=== PATIENT | female | born 1950 | race Caucasian/White ===

== ENCOUNTER 2022-07-12 09:45 | Day surgery (SDC) | payer MEDICARE, OTHER, SELFPAY ==
[2022-07-12] VITALS (23 sets, daily range): BP systolic 112–155; BP diastolic 69–89; PULSE 51–80; RESP 14–20; TEMP 35.9–36.7; O2SAT 95–100; BMI 29.1
[2022-07-12] MEDS: CELECOXIB 200 MG CAPSULE PO ×2 (10:11→21:59)
[2022-07-12] MEDS: ACETAMINOPHEN 500 MG TABLET 1000 MG PO ×2 (10:11→19:17)
[2022-07-12] MEDS: SODIUM CHLORIDE 0.9 % (FLUSH) 10 ML SYRINGE IVF (10:26)
[2022-07-12] MEDS: LACTATED RINGERS 1000 ML 1,000 ML 100 ML IV ×2 (10:27→16:17)
[2022-07-12] MEDS: MIDAZOLAM HCL 1 MG/ML inj IVP (13:47)
--- NOTE | 2022-07-12 13:47 | SUR.PREOP ---
TIME?OUT:?1345 PT/Megan THOMPSON RN/Huong ENRIQUEZ MDA?VERIFICATION?OF?SURGICAL?SITE,?PROCEDURE,?AND?CONSENT OBTAINED?PRIOR?TO?INVASIVE?PROCEDURE.
[2022-07-12] MEDS: TRANEXAMIC ACID 100 MG/ML INJ 1000 MG IV (14:15)
[2022-07-12] MEDS: CEFAZOLIN 2 GM in 0.9 % SODIUM CHLORIDE Mini-bag 100 ML IVPB ×2 (14:15→19:36)
--- NOTE | 2022-07-12 15:37 | CRLHL7_ITS ---
For Patients: As a result of the Cures Act, medical imaging exams and procedure reports are released immediately into your electronic medical record. You may view this report before your referring provider. If you have questions, please contact your health care provider. Indication: POST-OP XRAY TKA LT KNEE Technique: Two views left knee Findings/Impression: Hardware from a left total knee arthroplasty is in satisfactory position. Bone alignment is normal. No sign of acute fracture. Postop changes are within normal limits. Dictated by Yoandy Kramer MD @ 07/13/2022 9:09:44 AM (Electronically Signed)
--- NOTE | 2022-07-12 15:54 | P.ORPRC_ITS ---
Procedure Note Date of procedure: 07/12/22 Procedure: PREOPERATIVE DIAGNOSIS: 1. Left knee osteoarthritis, primary, severe POSTOPERATIVE DIAGNOSIS: 1. Left knee osteoarthritis, primary, severe PROCEDURE: 1. Left total knee arthroplasty SURGEON: Anthony Ventura MD. LICENSED MENTAL HEALTH PROFESSIONAL: Scar Nguyen PA-C - Of note, a skilled call center assistant was critical for this case to aid in patient positioning, tissue retraction, limb manipulation/positioning, and closure. ANESTHESIA: Spinal anesthetic EBL: 50ml IMPLANTS: DePuy J&J all cemented TKA - Attune PS femur size 5 regular, size 4 tibia, 5 poly spacer, 38 mm patella TOURNIQUET: 90 min at 300 torr COMPLICATIONS: None evident INDICATIONS: The patient is a pleasant 72-year-old female who has experienced severe left knee pain and difficulty bearing weight. Workup included x-rays which revealed severe osteoarthrosis in the knee. Given the deformity, the dysfunction, and the pain, as well as the failure of nonoperative management, recommendation was made for surgery. FINDINGS: Full-thickness chondral loss medial compartment broadly. Degenerative medial meniscus pathology. Significant chondromalacia remaining compartments as well. Large effusion. Multiple loose bodies encountered in the posterior central part of the knee. The largest measured 15 mm in greatest dimension. DESCRIPTION OF PROCEDURE: Following a thorough discussion of risks, benefits, and alternatives consent was obtained and the left knee was marked. The patient was brought to the operating room and placed supine on the operating table. Induction of anesthesia was undertaken. 2 g IV Ancef and 1 g tranexamic acid was administered within 1 hr of incision preoperatively. Proper time-out was performed identifying proper patient, site, procedure. The operative extremity was prepped and draped in the appropriate sterile fashion using ChloraPrep after the patient was positioned supine with all bony prominences well padded. A longitudinal, anterior, midline skin incision was made starting approximately 3cm proximal to the superior pole of the patella and advanced distal to the tibial tubercle. A median parapatellar arthrotomy was created. A medial subperiosteal sleeve was created with knife, jimenez elevator and curved osteotome. The retropatellar fatpad was resected and the synovium in the suprapatellar pouch excised to visualize the anterior femoral cortex. Femoral preparation was performed via an intramedullary guide. Step drill allowed access into the femoral canal. The distal cutting guide was placed with 5? of valgus and 10 mm cut on the distal femur. Femur was sized using a posterior referencing guide in 3? of external rotation. This found have a best fit with the sizing noted above. The 4 in 1 cutting block was then placed, and the distal femur shaped accordingly. The box cut was then created and the trial implant inserted to confirm appropriate fit. We turned our attention to the proximal tibia. Extramedullary guide was utilized for cutting with the goal of being 90 degree cut from the mechanical axis of the tibia in the varus/valgus plane utilizing tibial crest as the primary alignment. Initially a 2 mm resection was performed from the medial tibial plateau. Ultimately, balancing was achieved in both flexion and extension in both varus and valgus. The knee was able to achieve full extension as well comfortably. The patella was initially measured and found have a thi ckness of 25 mm. It was resected back to approximately 15 mm. It was sized to be a best fit with as noted above. This was drilled, trial placed. All trials were placed and found to have an excellent stability and balance. At this stage, trial implants were removed, the knee was thoroughly irrigated with normal saline, and the cement was mixed. After irrigation, the knee was thoroughly dried, and cement placed, with the real tibial and femoral implants placed along with the patella. Trial poly spacer was placed and confirmed to have excellent range of motion and full extension, and the real poly spacer opened and inserted. All extra cement was removed, and a 3 min Betadine soak performed. Finally, a final irrigation round with normal saline was performed. Closure performed with 0 PDS and #0 Stratafix for the quad tendon/retinaculum. 2-0 Vicryl/Stratafix for the subcutaneous and 4-0 Monocryl for subcuticular closure. Dressings were applied and the patient was awoken from anesthesia after the tourniquet deflated and transferred the PACU in stable condition. A skilled call center assistant was critical for this case to aid in patient positioning, tissue retraction, bone exposure, limb manipulation/positioning, patient safety, and closure. PLAN: 1. Weight bear as tolerated operative extremity. 2. 23 hr perioperative antibiotics. 3. Ice. 4. PT/OT consults for ambulation assistance/mobility education. 5. Social work consult for discharge planning. 6. DVT prophylaxis with at SCDs, Nelson Hose, and aspirin twice daily.
--- NOTE | 2022-07-12 16:20 | W.ANESCHARGE ---
Anesthesia Charges Start Date/Time Anesthesia Start Date: 07/12/22 Anesthesia Start Time: 13:55 Stop Date/Time Anesthesia Stop Date: 07/12/22 Anesthesia Stop Time: 16:15 Summary Emergency: No Extremes of Age: Over 71-CPT 54023
[2022-07-12] MEDS: TRAMADOL HCL 50 MG TABLET PO (19:13)
[2022-07-12] MEDS: ONDANSETRON 2 MG/ML inj 4 MG IVP (19:14)
[2022-07-12] MEDS: LACTATED RINGERS 1000 ML 1,000 ML 75 ML IV (19:14)
[2022-07-12] MEDS: SENNOSIDES 1 TAB TABLET 2 TAB PO (22:00)
[2022-07-12] MEDS: ATORVASTATIN CALCIUM 40 MG TABLET PO (22:00)
[2022-07-12] MEDS: OMEPRAZOLE 20 MG CAPSULE DR PO (22:00)
[2022-07-12] MEDS: ASPIRIN 81 MG TABLET EC PO (22:00)
--- NOTE | 2022-07-12 23:19 | P.IMCN_ITS ---
Date of Consult Patient: Olivia Patient Consult date: 07/12/22 Requesting Physician: Orthopedics Primary Care Provider: Laila Padilla MD Consult Narrative Reason for consult: Help manage medical problems status post elective left TKA Narrative: Sari Braswell is a 72 year old woman undergoes elective left total knee arthroplasty today without any apparent complications. Over the course of last couple years her left knee osteoarthritis has become increasingly difficult to manage. Review of Systems Status of ROS: Reports: 10 or more systems reviewed and unremarkable except as noted in History and below Narrative: Generally fairly active. Denies angina, anginal equivalent, syncope near, syncope, nausea, vomiting, palpitations, fluttering, diaphoresis, cough, dyspnea at rest, paroxysmal nocturnal dyspnea, orthopnea, or even dyspnea with exertion. Denies diarrhea or constipation. Denies urinary frequency, urgency, dysuria, hematuria. No recent infections. No recent trauma or injury. No recent travel. She does enjoy traveling. She and her are both retired. 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 Has plans in place for rehabilitation postoperatively. Will be returning home with her . Designates her as her power of trademark attorney for health should that be required. Requests full resuscitation in the event of cardiopulmonary demise. [facility] Medical History (Updated 07/12/22 @ 23:36 by Ángel Yung MD) Anemia Arthropathy of cervical facet joint Gastroenteritis H/O NSAID-associated gastropathy Iron deficiency anemia Lumbar degenerative disc disease Non-ST elevation (NSTEMI) myocardial infarction Osteoarthritis of left knee Osteoarthritis of right knee Osteopenia Spinal stenosis, lumbar region without neurogenic claudication Spondylolisthesis Venous insufficiency (chronic) (peripheral) Surgical History (Updated 07/12/22 @ 23:36 by Ángel Yung MD) History of ankle surgery (05/28/07) History of ankle surgery (03/05/07) History of foot surgery (10/03/07) S/P total knee arthroplasty Status post arthroscopic partial medial meniscectomy (06/28/07) Family History Father Heart disease Stroke Mother Macular degeneration of both eyes Maternal Grandmother Diabetes Social History Smoking Status: Never smoker Do you use any of these nicotine containing products: None Second hand tobacco smoke exposure: No How often do you have a drink containing alcohol: 2-4 times a month Alcohol type: wine How many standard drinks containing alcohol do you have on a typical day: 1 or 2 How often do you have six or more drinks on one occasion: Never AUDIT-C Alcohol total score: 2 Non-prescribed substance use: denies use Caffeine: Yes (Tea 1-2 cups/day, 1-2 cans soda/day) Are you using contraception or practicing any form of control: No Meds Home Medications and Allergies Home Medications Medication Instructions Recorded Confirmed Type aspirin 81 mg tablet,delayed 81 mg PO QDAY 06/23/22 07/12/22 History release atorvastatin 40 mg tablet 40 mg PO HS 06/23/22 07/12/22 History Allergies Allergy/AdvReac Type Severity Reaction Status Date / Time No Known Drug Allergies Allergy Verified 07/12/22 09:59 Exam Narrative: Exam Narrative: Appears comfortable. No acute distress. Alert, oriented to self, place, time, situation. Friendly, cooperative, articulate. Mood and affect are congruent. Vision and hearing are both grossly normal. Dentition in good repair. Neck is supple. Midline trachea. Normal thyroid. No JVD, hepatojugular reflux, or carotid bruits. No lymphadenopathy. Lungs are clear to auscultation without wheezing, rhonchi, or rales. No CVA tenderness. Heart tones with regular rhythm, normal S1-S2, no murmur, gallop, or rub. Abdomen with active bowel sounds, soft, nontender. Skin is intact. Capillary refill less than 3 seconds. No edema. Changes of osteoarthritis in her hands. Already able to move both lower extremities without any difficulty. Const: Vital Signs, click to edit/add: Vital Signs - 24 hr 07/12/22 10:29 07/12/22 13:42 07/12/22 13:45 Temperature 97.8 F Pulse Rate 75 68 79 Pulse Rate [Right Pulse Oximeter] Respiratory Rate 18 18 18 Blood Pressure 116/69 142/89 H 155/87 H Blood Pressure [Ri ght Arm] Pulse Oximetry 97 99 97 Oxygen Delivery Me thod Room Air Nasal Cannula Nasal Cannula Oxygen Flow Rate 2 2 07/12/22 13:50 07/12/22 16:12 07/12/22 16:15 Temperature 97.3 F L Pulse Rate 66 58 L 62 Pulse Rate [Right Pulse Oximeter] Respiratory Rate 18 16 16 Blood Pressure 124/76 112/75 114/74 Blood Pressure [Ri ght Arm] Pulse Oximetry 100 95 95 Oxygen Delivery Me thod Nasal Cannula Room Air Oxygen Flow Rate 2 07/12/22 16:20 07/12/22 16:25 07/12/22 16:30 Temperature Pulse Rate 57 L 55 L 57 L Pulse Rate [Right Pulse Oximeter] Respiratory Rate 16 14 14 Blood Pressure 114/76 114/74 116/82 Blood Pressure [Ri ght Arm] Pulse Oximetry 95 96 96 Oxygen Delivery Me thod Room Air Room Air Room Air Oxygen Flow Rate 07/12/22 16:35 07/12/22 16:40 07/12/22 16:53 Temperature 96.8 F L 96.6 F L Pulse Rate 53 L 52 L 59 L Pulse Rate [Right Pulse Oximeter] Respiratory Rate 14 14 16 Blood Pressure 117/78 127/80 Blood Pressure [Ri ght Arm] 115/69 Pulse Oximetry 97 96 Oxygen Delivery Me thod Room Air Room Air Room Air Oxygen Flow Rate 07/12/22 17:00 07/12/22 17:15 07/12/22 17:30 Temperature Pulse Rate Pulse Rate [Right Pulse Oximeter] 54 L 56 L Respiratory Rate 16 16 16 Blood Pressure Blood Pressure [Ri ght Arm] 142/83 H 129/81 133/81 Pulse Oximetry 96 96 96 Oxygen Delivery Me thod Room Air Room Air Room Air Oxygen Flow Rate 07/12/22 18:00 07/12/22 17:45 07/12/22 18:30 Temperature 97 F L Pulse Rate Pulse Rate [Right Pulse Oximeter] 54 L 51 L 64 Respiratory Rate 16 16 16 Blood Pressure Blood Pressure [Ri ght Arm] 143/85 H 131/81 136/88 Pulse Oximetry 96 96 96 Oxygen Delivery Me thod Room Air Room Air Room Air Oxygen Flow Rate Documenting provider has reviewed patient's vital signs: yes Assessment and Plan Assessment and plan (1) Osteoarthritis of left knee: Problem comment: Severe Status: Acute (2) S/P total knee arthroplasty: Problem comment: Left total knee arthroplasty 07/12/2022 Status: Acute (3) Non-ST elevation (NSTEMI) myocardial infarction: Problem comment: June 2020. Troponin I as high as 5.9. Coronary angiography demonstrated no evidence of obstructive coronary arteries, right dominant system. The working hypothesis is that she has either a subclinical plaque rupture or thromboembolic event. Completed 9 months of clopidogrel therapy. On lifelong aspirin and statin. Status: Acute (4) H/O NSAID-associated gastropathy: Problem comment: EGD 2021. Status: Acute Plan 1. Reviewed impression with patient. 2. Answered patient's questions to her satisfaction. 3. Will schedule acetaminophen q.i.d.. 4. Given that she is on scheduled celecoxib, with her history of the NSAID associated gastropathy, I have added omeprazole on a scheduled basis. She will need to remain on the omeprazole for the duration of time that she is on the nonsteroidal anti-inflammatory medication. 5. Added p.r.n. hydroxyzine for additional pain management. Patient declines the use of any opioids due to untoward adverse consequences that she suffered from with use of the same in the past. Describes prior lightheadedness, nausea, vomiting. 6. Agree with perioperative antibiotic therapy for prophylaxis. 7. Agree with postoperative venous thromboembolism prophylaxis efforts. 8. Will follow patient while she is in the hospital with Orthopedic surgery as primary.
[2022-07-13] MEDS: TRAMADOL HCL 50 MG TABLET PO (03:35)
[2022-07-13] MEDS: CEFAZOLIN 2 GM in 0.9 % SODIUM CHLORIDE Mini-bag 100 ML IVPB (03:45)
[2022-07-13 03:55] VITALS: BP 144/93; PULSE 77; RESP 16; TEMP 36.6; O2SAT 96
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
[2022-07-13 07:00] VITALS: BP 115/71; PULSE 77; RESP 18; TEMP 36.2; O2SAT 95
[2022-07-13 07:07] LABS: Basophils Percent Auto 0.1 % (0.0-3.0); Hematocrit 38.8 % (33.0-51.0); Hemoglobin* 12.6 gm/dL (12.0-16.0); Immature Granulocytes Abs Auto 0.02 K/uL (0.00-0.30); Mean Corpuscular HGB Conc 33 gm/dL (32-36); Mean Corpuscular Hemoglobin 29 pg (26-34); Mean Corpuscular Volume 91 fL (80-100); Monocytes Percent Auto 5.7 % (0.0-11.0); Platelet Count* 255 K/uL (140-440); RDW Coefficient of Variation % 14.7 % (11.5-15.5); Red Blood Count 4.28 m/uL (4.00-5.20)
[2022-07-13 07:13] LABS: Slide Review Reflex No
[2022-07-13 07:28] LABS: Potassium* 4.1 mmol/L (3.6-5.1); Sodium* 137 mmol/L (135-149)
--- NOTE | 2022-07-13 07:28 | P.NB_ITS ---
Nerve Block Nerve Block Date Seen: 07/12/22 Type of block requested by surgeon for post-operative analgesia: adductor canal Side: left Time out performed: Yes Verification of patient name: Yes Verification of date of : Yes Site marking: site marked Name of person performing procedure: Kenyon Continuous monitoring Was continuous monitoring of O2 sat, B/P, cardiac monitor technician, recorded every 15 minutes?: Yes Procedure Checklist: sterile prep, needles and gloves Ultrasound guided. Images saved: Yes Medications given in 5ml increments after negative aspiration: Ropivicaine %: 0.5 mL: 20 Needle gauge: 20 Decadron (mg): 10 Precedex (mcg): 25 Patient tolerated procedure well: Yes Additional comments: Needle noted adjacent to nerve Block Charges Block Charge (with Pro Fee): Femoral Nerve Use of Ultrasound Machine for Block: Yes- US Guidance/pain block
--- NOTE | 2022-07-13 07:28 | W.ANESCHARGE ---
Anesthesia Charges Start Date/Time Anesthesia Start Date: 07/12/22 Anesthesia Start Time: 13:55 Stop Date/Time Anesthesia Stop Date: 07/12/22 Anesthesia Stop Time: 16:15 Summary Emergency: No Extremes of Age: Over 71-CPT 10100
--- NOTE | 2022-07-13 07:29 | P.NB_ITS ---
Nerve Block Nerve Block Date Seen: 07/12/22 Type of block requested by surgeon for post-operative analgesia: geniculars Side: left Time out performed: Yes Verification of patient name: Yes Verification of date of : Yes Site marking: site marked Name of person performing procedure: Kenyon Continuous monitoring Was continuous monitoring of O2 sat, B/P, night monitor, recorded every 15 minutes?: Yes Procedure Checklist: sterile prep, needles and gloves Medications given in 5ml increments after negative aspiration: Ropivicaine %: 0.5 mL: 9 Needle gauge: 25 Patient tolerated procedure well: Yes Block Charges Block Charge (with Pro Fee): Genicular Nerve Block Use of Ultrasound Machine for Block: No
[2022-07-13 07:31] LABS: Creatinine* 0.6 mg/dL (0.5-1.5); Est. Creatinine Clearance* 46.43; Estimated Glomerular Filt Rate 96 ml/min
[2022-07-13 07:32] LABS: Blood Urea Nitrogen* 17 mg/dL (7-30)
[2022-07-13] MEDS: OMEPRAZOLE 20 MG CAPSULE DR PO (08:30)
[2022-07-13] MEDS: CELECOXIB 200 MG CAPSULE PO (08:30)
[2022-07-13] MEDS: ACETAMINOPHEN 500 MG TABLET 1000 MG PO (08:33)
[2022-07-13] MEDS: ASPIRIN 81 MG TABLET EC PO (08:37)
--- NOTE | 2022-07-13 09:05 | PM.ORPN ---
Subjective Subjective Date Seen: 07/13/22 Principal diagnosis: Status postop day 1 left total knee arthroplasty Interval history: Patient reports doing well. No significant acute events over night; 1 episode of emesis which she feels was due to food; this has since resolved. Pain managed with scheduled/PRN medications and ice. DVT prophylaxis 81 mg aspirin by mouth twice daily, bilateral knee high Nelson stockings, and SCDs. Denies fevers, chills, aches, N/V (since the 1 emesis episode), CP, SOB/GRUBER, tachycardia, or lightheadedness. Ortho Exam Narrative Exam Narrative: -Patient appears comfortable; no apparent acute distress -Alert and oriented times 3 -Operative knee mild-moderate swollen; soft tissues supple; no ecchymosis; no erythematous streaking. Warmth appropriate -Surgical dressing clean, dry, intact; no drainage -Bilateral calfs soft; no significant swelling, edema, tenderness, erythema, discoloration, warmth, or palpable cords -2+ DP/PT pulses, intact dermatomes and myotomes distally (5/5 strength) Const Vital Signs, click to edit/add: Vital Signs - 24 hr 07/12/22 10:29 07/12/22 13:42 07/12/22 13:45 Temperature 97.8 F Pulse Rate 75 68 79 Pulse Rate [Right Pulse Oximeter] Respiratory Rate 18 18 18 Blood Pressure 116/69 142/89 H 155/87 H Blood Pressure [Right Arm] Pulse Oximetry 97 99 97 Oxygen Delivery Method Room Air Nasal Cannula Nasal Cannula Oxygen Flow Rate 2 2 07/12/22 13:50 07/12/22 16:12 07/12/22 16:15 Temperature 97.3 F L Pulse Rate 66 58 L 62 Pulse Rate [Right Pulse Oximeter] Respiratory Rate 18 16 16 Blood Pressure 124/76 112/75 114/74 Blood Pressure [Right Arm] Pulse Oximetry 100 95 95 Oxygen Delivery Method Nasal Cannula Room Air Oxygen Flow Rate 2 07/12/22 16:20 07/12/22 16:25 07/12/22 16:30 Temperature Pulse Rate 57 L 55 L 57 L Pulse Rate [Right Pulse Oximeter] Respiratory Rate 16 14 14 Blood Pressure 114/76 114/74 116/82 Blood Pressure [Right Arm] Pulse Oximetry 95 96 96 Oxygen Delivery Method Room Air Room Air Room Air Oxygen Flow Rate 07/12/22 16:35 07/12/22 16:40 07/12/22 16:53 Temperature 96.8 F L 96.6 F L Pulse Rate 53 L 52 L 59 L Pulse Rate [Right Pulse Oximeter] Respiratory Rate 14 14 16 Blood Pressure 117/78 127/80 Blood Pressure [Right Arm] 115/69 Pulse Oximetry 97 96 Oxygen Delivery Method Room Air Room Air Room Air Oxygen Flow Rate 07/12/22 17:00 07/12/22 17:15 07/12/22 17:30 Temperature Pulse Rate Pulse Rate [Right Pulse Oximeter] 54 L 56 L Respiratory Rate 16 16 16 Blood Pressure Blood Pressure [Right Arm] 142/83 H 129/81 133/81 Pulse Oximetry 96 96 96 Oxygen Delivery Method Room Air Room Air Room Air Oxygen Flow Rate 07/12/22 18:00 07/12/22 17:45 07/12/22 18:30 Temperature 97 F L Pulse Rate Pulse Rate [Right Pulse Oximeter] 54 L 51 L 64 Respiratory Rate 16 16 16 Blood Pressure Blood Pressure [Right Arm] 143/85 H 131/81 136/88 Pulse Oximetry 96 96 96 Oxygen Delivery Method Room Air Room Air Room Air Oxygen Flow Rate 07/12/22 23:00 07/13/22 03:55 07/12/22 19:00 Temperature 97.2 F L 97.8 F 98.1 F Pulse Rate Pulse Rate [Right Pulse Oximeter] 80 77 71 Respiratory Rate 20 16 16 Blood Pressure Blood Pressure [Right Arm] 122/76 144/93 H 148/89 H Pulse Oximetry 95 96 96 Oxygen Delivery Method Room Air Room Air Room Air Oxygen Flow Rate 07/12/22 21:00 07/12/22 22:00 07/12/22 20:00 Temperature 97.2 F L Pulse Rate Pulse Rate [Right Pulse Oximeter] 71 64 70 Respiratory Rate 16 16 Blood Pressure Blood Pressure [Right Arm] 122/75 122/76 127/81 Pulse Oximetry 95 95 Oxygen Delivery Method Room Air Room Air Room Air Oxygen Flow Rate Assessment and Plan Assessment and plan (1) Osteoarthritis of left knee: Problem details: Severe Status: Acute (2) S/P total knee arthroplasty: Problem details: Left total knee arthroplasty 07/12/2022 Status: Acute (3) Non-ST elevation (NSTEMI) myocardial infarction: Problem details: June 2020. Troponin I as high as 5.9. Coronary angiography demonstrated no evidence of obstructive coronary arteries, right dominant system. The working hypothesis is that she has either a subclinical plaque rupture or thromboembolic event. Completed 9 months of clopidogrel therapy. On lifelong aspirin and statin. Status: Acute (4) H/O NSAID-associated gastropathy: Problem details: EGD 2021. Status: Acute Plan - Complete 23 hour perioperative antibiotics. - PT/OT consult for education and assistance. - Social work consult for discharge planning - Prescribed analgesics as needed - DVT prophylaxis: 81 mg aspirin by mouth twice daily, bilateral knee high Nelson Hose stockings and SCDs - Anticipation is for discharge to home with spouse today 07/13/2022 if the patient remains medically stable, pain is controlled, and they are safe with mobilization.
--- NOTE | 2022-07-13 09:09 | P.DS_ITS ---
DS: Providers Provider Date Seen: 07/13/22 Date of admission: med/surg recovery 07/12/22 Primary care physician: Laila Padilla MD Consults: 07/12/22 17:04 Consult to Occupational Therapy [CONS] Routine Comment: Reason(s) for OT Consult:: ADLs Prior to Discharge Any Restrictions?:: See Comment Comment: See nursing activity order for any restrictions. Consult to Physical Therapy [CONS] Routine Comment: Ambulate in the [place] today. Reason(s) for PT Consult:: TKA TX Protocol POD#0 Any Restrictions?:: See Comment Comment: See nursing activity order for any restrictions. Consult to Physician [CONS] Routine Comment: Consulting Provider: Hospitalists Has provider been notified: No Consult to Animal Attendants And Trainers [CONS] Routine Comment: Reason for Consult:: Discharge Planning Needs Attending Physician on discharge: Anthony Ventura MD Date of Discharge: 07/13/22 DS: Diagnosis Discharge Diagnosis (1) Osteoarthritis of left knee: Status: Acute Problem details: Severe (2) S/P total knee arthroplasty: Status: Acute Problem details: Left total knee arthroplasty 07/12/2022 DS: Summary Hospital Course Hospital Course: The patient has a history of left knee osteoarthritis, primary, severe. After appropriate preoperative evaluation, the patient underwent left total knee arthroplasty. Postoperatively given anticoagulation for deep vein thrombosis prophylaxis. They progressed to PT/OT and were felt ready and prepared for discharged to home with appropriate pain medication and anticoagulation medications. Status at Discharge Functional status at discharge: uses cane/walker Overall status at discharge: patient is progressing back to baseline Time Spent with Patient Time attestation: Total time spent providing and/or coordinating discharge services: Time spent: Less than 30 minutes Exam Const: Vital Signs, click to edit/add: Vital Signs - 24 hr 07/12/22 10:29 07/12/22 13:42 07/12/22 13:45 Temperature 97.8 F Pulse Rate 75 68 79 Pulse Rate [Right Pulse Oximeter] Respiratory Rate 18 18 18 Blood Pressure 116/69 142/89 H 155/87 H Blood Pressure [Ri ght Arm] Pulse Oximetry 97 99 97 Oxygen Delivery Me thod Room Air Nasal Cannula Nasal Cannula Oxygen Flow Rate 2 2 07/12/22 13:50 07/12/22 16:12 07/12/22 16:15 Temperature 97.3 F L Pulse Rate 66 58 L 62 Pulse Rate [Right Pulse Oximeter] Respiratory Rate 18 16 16 Blood Pressure 124/76 112/75 114/74 Blood Pressure [Ri ght Arm] Pulse Oximetry 100 95 95 Oxygen Delivery Me thod Nasal Cannula Room Air Oxygen Flow Rate 2 07/12/22 16:20 07/12/22 16:25 07/12/22 16:30 Temperature Pulse Rate 57 L 55 L 57 L Pulse Rate [Right Pulse Oximeter] Respiratory Rate 16 14 14 Blood Pressure 114/76 114/74 116/82 Blood Pressure [Ri ght Arm] Pulse Oximetry 95 96 96 Oxygen Delivery Me thod Room Air Room Air Room Air Oxygen Flow Rate 07/12/22 16:35 07/12/22 16:40 07/12/22 16:53 Temperature 96.8 F L 96.6 F L Pulse Rate 53 L 52 L 59 L Pulse Rate [Right Pulse Oximeter] Respiratory Rate 14 14 16 Blood Pressure 117/78 127/80 Blood Pressure [Ri ght Arm] 115/69 Pulse Oximetry 97 96 Oxygen Delivery Me thod Room Air Room Air Room Air Oxygen Flow Rate 07/12/22 17:00 07/12/22 17:15 07/12/22 17:30 Temperature Pulse Rate Pulse Rate [Right Pulse Oximeter] 54 L 56 L Respiratory Rate 16 16 16 Blood Pressure Blood Pressure [Ri ght Arm] 142/83 H 129/81 133/81 Pulse Oximetry 96 96 96 Oxygen Delivery Me thod Room Air Room Air Room Air Oxygen Flow Rate 07/12/22 18:00 07/12/22 17:45 07/12/22 18:30 Temperature 97 F L Pulse Rate Pulse Rate [Right Pulse Oximeter] 54 L 51 L 64 Respiratory Rate 16 16 16 Blood Pressure Blood Pressure [Ri ght Arm] 143/85 H 131/81 136/88 Pulse Oximetry 96 96 96 Oxygen Delivery Me thod Room Air Room Air Room Air Oxygen Flow Rate 07/12/22 23:00 07/13/22 03:55 07/12/22 19:00 Temperature 97.2 F L 97.8 F 98.1 F Pulse Rate Pulse Rate [Right Pulse Oximeter] 80 77 71 Respiratory Rate 20 16 16 Blood Pressure Blood Pressure [Ri ght Arm] 122/76 144/93 H 148/89 H Pulse Oximetry 95 96 96 Oxygen Delivery Me thod Room Air Room Air Room Air Oxygen Flow Rate 07/12/22 21:00 07/12/22 22:00 07/12/22 20:00 Temperature 97.2 F L Pulse Rate Pulse Rate [Right Pulse Oximeter] 71 64 70 Respiratory Rate 16 16 Blood Pressure Blood Pressure [Ri ght Arm] 122/75 122/76 127/81 Pulse Oximetry 95 95 Oxygen Delivery Me thod Room Air Room Air Room Air Oxygen Flow Rate DS: Data Data Completed and Pending Labs on day of discharge: Labs from last 24 hours 07/13/22 07/13/22 06:30 06:30 WBC 12.00 H RBC 4.28 Hgb 12.6 Hct 38.8 MCV 91 MCH 29 MCHC [address] 14.7 Plt Count 255 Neut % (Auto) 83.0 H Lymph % (Auto) 11.0 L [place] % (Auto) 5.7 Eos % (Auto) 0.0 Baso % (Auto) 0.1 Neut # (Auto) 10.00 H Lymph # (Auto) 1.30 [place] # (Auto) 0.70 Eos # (Auto) 0.00 Baso # (Auto) 0.00 Abs Immat Gran (auto) 0.02 Sodium 137 Potassium 4.1 BUN 17 Creatinine 0.6 Estimated Creat Clear 46.43 Estimated GFR 96 Discharge Plan Discharge Disposition: Home, Self-Care Discharging Surgeon: Anthony Ventura Follow-Up Appointment: 1 week postop with Scar READ Prescriptions: New sennosides-docusate sodium [Senna-S] 8.6-50 mg tablet 1 - 4 tab-cap PO BID PRN (Reason: constipation) Qty: 60 0RF Rx Instructions: Hold medication if experiencing loose stools. aspirin 81 mg tablet,delayed release (DR/EC) 81 mg PO BID Qty: 60 0RF Rx Instructions: Medication to help prevent blood clots postoperatively; take TWICE daily. celecoxib 100 mg capsule 100 mg PO BID Qty: 60 0RF acetaminophen 500 mg capsule 500 - 1,000 mg PO Q6H MDD 4000mg PRNQty: 100 0RF omeprazole 20 mg Capsule,Delayed Release(Dr/Ec) 20 mg PO DAILY@0700 30 Days Qty: 30 1RF Rx Instructions: Take this medicine to help prevent gastritis while taking celecoxib (Celebrex) as prescribed by Orthopedic surgery. tramadol 50 mg tablet 50 - 100 mg PO Q4-6H MDD six PRN (Reason: pain) Qty: 42 0RF Continued atorvastatin 40 mg tablet 40 mg PO HS Held aspirin 81 mg tablet,delayed release (DR/EC) 81 mg PO QDAY Hold Instructions: Resume on 08/12/22. Resume after completing the 81 mg of aspirin twice daily regimen prescribed by Orthopedic surgery. Activity Level: Activity as Tolerated, Weight Bearing as Tolerated, Use Cane and Use Walker Discharge Diet: Low Fat/Low Cholesterol Patient Instructions: Surgical Site Infections (DC) Additional Instructions: Wound: ?Do not remove original dressing; we will remove this at first postop visit in 1 week. Only remove dressing if integrity is in question. ?No immersing wound in water; showering okay; light scrub with your hand and body soap, rinse, dab dry ?Sutures are under the skin, will dissolve; allow surgical glue to come off naturally; do not scrub the wound or apply ointments/lotions ?Call our office with any redness that streaks, excessive drainage from the wound, or wound gapping. Ice/Elevate: ?Ice as needed for swelling and discomfort (cryocuff or ice pack); elevate frequently above the heart ERIBERTO socks: ?Wear for 1 month, remove for 1 hour 3 times per day ?These are frustrating to take on/off, but are important for blood clot prevention for 1 month after surgery Blood Clot Prevention (DVT): ?Medication: 81 mg aspirin by mouth twice daily (1 month) Driving: ?Do not drive while taking narcotic pain medication ?Anticipate 4-6 weeks no driving if operative leg is driving leg Dental: ?No elective dental work for 6 months post-op. If there is an urgent/emergent dental need, contact our office for an antibiotic prescription. Smoking/Alcohol: ?Do not smoke; do no drink alcohol especially when taking postoperative oral narcotic medication Seek Care from you Primary Care Provider if you experience the following issues in the postoperative phase and beyond: ?Bacterial infections such as: pneumonia, bacterial skin infection (cellulitis), UTI, high fever, chills unrelated to the operative body part - call your primary care physician urgently for treatment in hopes to protect your health and the metal implant. Referrals: ?PT, OT per patient preference - evaluate treat total knee arthroplasty protocol (gait training, ROM, ADLs) Follow up: ?Ortho surgeon follow-up in 6 weeks; repeat radiographs three views operative knee ?PA-C visit in 1 week *If there are any acute concerns regarding your surgery, please call our orthopedic clinic ([phone]) Forms: Work/Release Restrictions Follow-up: Laila Padilla MD [Primary Care Provider] - Discharge Orders: Discharge Order (Routine); Ordered 07/12/22 Ordered By: Ángel Yung
--- NOTE | 2022-07-13 10:59 | PC.SOCIAL ---
Addendum entered by LEDA Hodge 07/13/22 11:10: Reviewed social work fall intern note. LEDA Jorge Original Note: Social work completed discharge check-in this morning. Patient states that spouse is fully capable of caring for her at home, and she has other supports she can call nearby if needed. Patient states that home will be accessible for her needs. Patient expresses no further concerns at this time, and knows that she can contact social worker assistant if she has any questions.
== END 2022-07-13 11:25 | disposition home or self-care (01) ==
LOC: OR 09:46 → MEDSURG 10:54
PROVIDERS: PCP Family Medicine; Visit Provider Orthopaedic Surgery Sports Medicine
PROC: (CPT 27447; principal; 2022-07-12 11:30)
DX: M17.12 Unilateral primary osteoarthritis, left knee (principal); M94.262 Chondromalacia, left knee; I25.2 Old myocardial infarction
CPT/HCPCS: 27447; 01402; 36415; 64447; 64454; 73560; 76942; 82565; 84132; 84295; 84520; 85025; 97110; 97116; 97161; 97165; 97530; 97535; 99100; A9270; C1776; J0690; J1100; J2250; J2370; J2405; J2704; J2795; J7120

== ENCOUNTER 2022-09-06 09:30 | Outpatient (RCR) | payer MEDICARE, OTHER, SELFPAY ==
--- NOTE | 2022-06-28 07:52 | PT.OPEX ---
[facility] Outpatient Eval Start: 06/27/22 15:18 Freq: Status: Active Protocol: Document 06/27/22 15:19 ENM (Rec: 06/27/22 16:34 ENM [id number]) E-signed By Taylor Green, DPT Physical Therapy Outpatient Evaluation Insurance Information Recert Due Date 09/19/22 Insurance Name Medicare B Medical Diagnosis unilateral primary osteoarthritis of left knee, presence of unspecified artificial knee joint Treating Diagnosis left knee pain, decreased knee ROM, decreased quad strength, impaired balance Referring MD Ventura Subjective Subjective Patient presents to PT for pre -op evaluation prior to L TKA DOS 07/12/22 to be performed by . Patient has been seen in the past for PT for her knees. She has seen Dr Gorman for injections every 6 months for the knees. In November she had a left knee ablation which helped some with the pains. Some days the pains are better than other. She continued to have difficulty keeping up with more activity because of the knee. 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 More recently the knees were not feeling as good with it. Stairs have also been harder so that has avoided them more. This will be her first joint replacement and her will be available to help her after. PMHx: arthritis R foot, heart condition, respiratory problems Pain Comments varies depending on the day Current Work Status Retired Objective Other/Pertinent Objective Knee ROM L 0-4-115 R 0-3-121 hip ROM WFL flexion, IR and ER B strength: hip flexors 4-/5 B knee extensors 4-/5 B gait/balance: SLS able to hold 2-3s on the L using toes to managed care coordinator surface for stability SLS R able to hold ~10s No significant gait deviations with ambulation as patient not having as much pain today. Noted decreased knee extension bilaterally throughout gait cycle and L knee varus posture palpation/joint mobility: no significant tenderness to palpation along joint line or musculature Other: normal HS mobility slight calf tightness on L compared to R R ankle pes cavus positioning and swollen at baseline Functional Test Performed & Score LEFS:47/80 Assessment Assessment/Impression Patient is a 72 year old female presenting for pre op visit prior to L TKA on . She has a long history of medical interventions due to knee pains including L knee injection and ablation. Pains at the left knee vary depending on the day. The left knee is primarily limiting the patients ability to be as active as she would like to be . Stairs have become the most difficult to perform due to the knee. Her goal for after surgery is to be active again as soon as able. Upon assessment patient displays decreased knee ROM, decreased proximal hip strength and impaired balance. No significant tenderness to palpation along joint line or musculature. Knee extension limited bilaterally with ROM measures. Poor SLS on the L side compared to R side. She was educated on expectations for surgery and rehabilitation . She was given exercises to start with prior to surgery. Patient will be seen post operatively to reassess impairments that will be addressed with skilled care. Sari would greatly benefit from skilled PT in order to progress strength, ROM, balance and ambulation post operatively in order to return to PLOF and activity. Primary Functional Limitations stairs, increased activity Plan of Care Rehabilitation Potential Good Physical Therapy Goals After pre-op visit: ? Patient will be independent with HEP ? Patient will verbalize knowledge of stair navigation and proper sequencing ? Patient will have knowledge on home adaptations and use of assistive devices post operatively ? Patient will have knowledge of edema management Coordination/Communication With Referral Source Treatment Plan/Direct Interventions Electrical Stimulation,Gait Training,Joint Mobilization, Manual Therapy,Neuromuscular Re-ed,Self-Care/Home Management,Therapeutic Activities,Therapeutic Exercises Frequency/Duration ? 1x visit prior to surgery on 07/12/22. Patient scheduled to start outpatient PT s/p L TKA on 07/14/22. Has HEP to start with pre- operatively. After surgery 1-2x a week for 6-7 weeks, 1x a week for 4 weeks Patient Will Be Discharged From Therapy Completion of LTG(s), Independent w/HEP Evaluation Billing Untimed Code Treatment Minutes 31 Complexity Low Certification Information Initial Certification Date 06/27/22 Ending Certification Date 09/19/22 Provider Signature Shows Agreement With POC & Medical Necessity Physician Comment/Change Comment or Changes Physician NPI Number #
--- NOTE | 2022-07-14 16:41 | PT.OPDNX ---
PT [place] [facility] Daily Note PT [facility] Outpatient Daily Note Start: 06/27/22 15:18 Freq: Status: Active Protocol: Document 07/14/22 12:44 ENM (Rec: 07/14/22 16:35 ENM [id number]) E-signed By Taylor Green DPT PT OP Daily Progress Note Visit Information Note Type Re-Evaluation Visit Number 2 Insurance Information Recert Due Date 10/06/22 Insurance Name Medicare B Medical Diagnosis unilateral primary osteoarthritis of left knee, presence of unspecified artificial knee joint Treating Diagnosis left knee pain, impaired gait, impaired transfers, decreased knee ROM, decreased quad strength, impaired balance Referring MD Ventura Subjective Subjective Patient presents to PT for post-op evaluation s/p L TKA( DOS 07/12/22). She states that she did really well in the hospital yesterday. She is using tylenol, celebrex and tramadol for pain relief. She flew through the exercises yesterday but they have been more tough today. Lifting the leg is the most difficult for the patient right now. She has to force the knee back in order to get to standing. Pain is moderate with rest and mobility. Stairs have been difficult as well with managing the cane and 1 railing, spouse has been around to help. PMHx: arthritis R foot, heart condition, respiratory problems Pain Comments moderate-severe Home Exercise Home Exercise Comments pre op exercises including: ankle pumps, QS, GS, HS, SAQ, LAQ, knee extension stretch, heel slides Objective Other/Pertinent Objective Knee ROM L 0-6-86 R 0-3-121 strength: quad set fair-good quad set SLR Saleem to perform gait/balance: Patient ambulating with use of 2WW with antalgic gait pattern, decreased knee extension LLE, step through pattern with progressing step length. Decreased stance time on LLE compared to R palpation/joint mobility: no significant tenderness to palpation along thigh, calf or posterior knee swelling/observation: superior patella: L 52 cm R 46 .5 cm mid patella: L 50 cm R 45 cm inf patella: L 45 cm R 43 cm bandaging over L incision, mild bruising medial knee Patient needing to lift leg for supine<>sit transfer Functional Test Performed & Score pre op: LEFS:47/80 Patient Instructed in Risks/Benefits Yes Therapeutic Exercise Therapeutic Exercise Minutes (minutes) 18 Therapeutic Exercise: To Restore -quad set 10x5s hold with Functional Status towel under knee for TC and comfort -supine heel slide with strap x10 -HS set 10x3s, cues for digging heel down and in -SAQ x10, limited range initially that progressed with reps -SLR 2x5, Saleem progressing to CGA to perform -seated heel slide with slider -issued tennis balls for walker and Tubigrip level H. Educated on continued icing and elevation to help manage swelling Gait & Stair Training Gait Training/Stairs Minutes (minutes) 8 Gait & Stair Training Comments Patient cued for quad activation and heel strike with ambulation. Ambulating 100' implementing cues. Patient navigating 2 steps with use of railing and SEC with reinforcement for sequencing up with good down with bad. Patient able to perform SBA with proper sequencing Treatment Minutes Untimed Code Treatment Minutes 19 Timed Code Treatment Minutes 26 Total Treatment Time 45 Billing Units Gait Training/Stairs Units 1 Therapeutic Exercise Units 1 Re-Evaluation Units 1 Assessment/Impression Assessment/Impression Patient returns to PT for evaluation s/p L TKA DOS 07/12. She reports the most difficulty with lifting the leg, getting to standing and straightening the knee. She has been able to ambulate with use of 2WW without difficulty and navigate stairs with railing/SEC. 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 Upon assessment patient displays decreased knee ROM, impaired gait, impaired balance, impaired transfers, decreased quad strength and swelling. Patient displaying good tolerance for knee flexion with most discomfort and limitation into knee extension. Fair-good quad set with progressing SLR from Saleem to CGA. Most significant swelling present in medial knee and calf. Impairments consistent with s/p TKA. Patient would greatly benefit from skilled PT postoperatively to address impairments stated above in order to perform all functional mobility and recreational activities without significant difficulty or discomfort. Plan of Care Physical Therapy Goals In 4-5 weeks: 1. Patient will improve knee ROM to > 100 for improved ease of STS transfers 2.Patient will ambulate with improved mechanics and less than 3/10 knee pain with or without AD >150' for improved household/community mobility 3. Patient will perform >5 SLR with improved form and strength to improve supine<> sit transfer 10-12 weeks: 1. Patient will improve knee ROM to >120 in order to comfortably navigate stairs for household and community navigation 2. 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 Patient will be able to navigate >2 full flights of stairs with reciprocal gait pattern to demonstrate improvements in stair tolerance for full return to tours Daily Plan of Care Continue per POC Daily Plan of Care Comments Plan: progress ROM progress strength MT as needed gait training Recertification Information Provider Signature Shows Agreement With POC & Medical Necessity
== END 2023-04-19 23:59 | disposition home or self-care (01) ==
PROVIDERS: PCP Family Medicine; Visit Provider Orthopaedic Surgery Sports Medicine
DX: M17.12 Unilateral primary osteoarthritis, left knee (principal); Z51.89 Encounter for other specified aftercare
CPT/HCPCS: 93971; 97110; 97116; 97140; 97161; 97164

== ENCOUNTER 2023-08-28 08:02 | Outpatient (CLI) | payer MEDICARE, OTHER, SELFPAY ==
--- OUTSIDE RECORDS SUMMARY | 2023-08-28 08:05 | XMS_ITS | Continuity of Care Document ---
Author Name Unknown Organization [facility] Address [address] [place] [address] [address] [place] [address] Phone Care Team Providers Care Scullion Chief Name Role Phone Marlen LANIER, Enstoby Unavailable Unavailable Procedures Procedure Date Office consultation, moderate 0 X-ray exam lower spine 2-3 views 2009 Advance Directives Directive Yes / No Effective Date File Name No Information Encounters Encounter Description Practice Location Reason(s) For Visit Diagnoses Date Provider Providers Copied on Encounter Office consultation, moderate Z [facility], [address] [place], [place] [address], [address], tel:[phone] [facility] No Information 201 0 [employer] Ensor. [facility], [address] [place] [address], [address], [id number], . tel:[phone] Family History Family Member Type Diagnosis Age At Onset No Information Payers Payer name Insurance type Covered green party ID Authordanutaa tisilvia(s) [facility] [id number] Social History Type Description Quantity Date Captured Comments Sex Female Smoking Status No Information Vital Signs Date / Time: Height Weight BMI Pulse Rate Blood Pressure Temperature Respiratory Rate Body Surface Area Head Circumference Head Circ. Percentile Wt./Niraj. Percentile BMI percentile Pulse Ox Inhaled Ox 8:52 AM 66.10 in 82.600 kg (182.10 lbs) 29.3 0 kg/m eter (2) Chief Complaint And Reason For Visit No Information Reason For Referral Reason For Referral No Information History Of Present Illness Encounter Date Complaint History Of Prese nt Illness No Information Functional Status Date Functional Assessmen t No Information Instructions Date Instruction Additional Infor mation No Information Assessments Type Assessment Date No Information Patient Care Teams Name Effective Dates (start - stop) Status Members No Information
== END 2023-08-28 08:03 | disposition home or self-care (01) ==
LOC: INJ CL 08:03
PROVIDERS: PCP Student in an Organized Health Care Education/Training Program; Visit Provider Family Medicine
DX: M54.16 Radiculopathy, lumbar region (principal); M51.36 Other intervertebral disc degeneration, lumbar region
CPT/HCPCS: 64483; J1100; Q9966

== ENCOUNTER 2024-01-08 08:10 | Outpatient (CLI) | payer MEDICARE, OTHER, SELFPAY ==
--- OUTSIDE RECORDS SUMMARY | 2024-01-08 08:13 | XMS_ITS | Clinical Summary ---
Author Name Unknown Organization [facility] Address [place], [place] [address] Care Team Providers Care Photographer Portrait Name Role Phone Suki Wagoner MD Primary Care Prov ider Allergies No known active allergies Medications Medication Sig Dispensed Refills Start Date End Date Status lutein 10 mg tab tablet Take 30 mg by mouth at bedtime. Active cholecalciferol (VITAMIN D3) 1,000 unit tablet Take 1,000 Units by mouth at bedtime. Active aspirin chewable 81 mg chewable tabletIndications:NS NADEEN (non-ST elevated myocardial infarction) (HC) Take 1 tablet by mouth once daily. 30 tablet 06/07/2020 Active nitroglycerin (NITROSTAT) 0.4 mg sublingual tabletIndications:CA D in [place] artery Place 1 Tablet (0.4 mg) under the tongue every 5 minutes if needed for Chest Pain. 15 Tablet 03/29/2022 Active medication order composer Take by mouth. Calcium supplement 1x daily 0 01/03/2023 Active medication order composer Take by mouth. Iron supplement 1x weekly 0 01/03/2023 Active atorvastatin (LIPITOR) 40 mg tabletIndications:NS NADEEN (non-ST elevated myocardial infarction) (HC) Take 1 Tablet (40 mg) by mouth at bedtime. 100 Tablet 3 05/23/2023 Active albuterol HFA (PRO-AIR; VENTOLIN; PROVENTIL) 90 mcg/actuation inhaler Inhale 1 Puff by mouth every 4 hours while awake. 08/06/2023 Active inhalational spacing deviceIndications:Ac mack bronchospasm due to viral infection For home use. 1 Each 09/10/2023 Active fluticasone (50 mcg per actuation) nasal solution (FLONASE)Indications :Post-nasal drip SPRAY TWO SPRAYS INTO EACH NOSTRIL ONCE DAILY. 16 g 3 10/02/2023 Active cetirizine (ZYRTEC) 10 mg tabletIndications:Ac mack bronchospasm due to viral infection Take 1 Tablet (10 mg) by mouth once daily. 30 Tablet 3 10/08/2023 Active Active Problems Problem Noted Date Diagnosed Date Iron deficiency anemia 07/03/2022 Overview: EGD: March 2022 Non-erosive reactive gastropathy Reactive gastropathy 07/03/2022 Overview: EGD 2021 [place] to be secondary to NSAID overuse Arthritis of left knee 10/11/2021 Chronic pain of left knee 10/11/2021 Arthropathy of cervical facet joint 10/12/2020 Overview: MRI 2018 multiple levels L side Osteopenia 10/11/2020 NSTEMI (non-ST elevated myocardial infarction) 0 06/04/2020 Overview: Jun 2020: presented with chest pain associated with nausea, vomiting and diarrhea: elevated troponin as high as 5.9. Coronary angiography which also revealed no evidence of obstructive coronary artery disease with normal coronary arteries and a right dominant system. ? subclinical plaque rupture versus Thromboembolic Cardiology recommends :Continue Plavix for 9 months, ASA and statin indefinitely. Continue metoprolol for one year. Primary osteoarthritis of left knee 06/21/2016 Overview: Jun 2016: MRI left knee degenerative complex meniscal tear and medial compartment osteoarthritis. Jun 2016: left knee cortisone injection Venous insufficiency 10/27/2013 Spinal stenosis, lumbar patricia on, without neurogenic claudication 11/12/2009 Spondylolisthesis 11/12/2009 healthcare maintenance 05/22/2008 Overview: LMP menopause Last Pap 06/21/07 Result WNL No hx of abn Last Mammo 9/08 - advised top schedule Last Colonoscopy - Colonoscopy 03/2013 normal repeat in 10 years Last DEXA never Last Td 05/01/06 Cholesterol normal 2006 Endometriosis, site unspecified 04/15/2007 Displacement of lumbar inter vertebral disc without myelopathy 04/15/2007 Encounters Date Type Department Care Team Description 11/12/2023 9:20 AM ORGANIC GARDENING TEACHER Ancillary Procedure [facility] [address] [facility] [address] 11/12/2023 Travel 11/08/2023 8:00 AM ORGANIC GARDENING TEACHER Office Visit [facility] [address] [place] [address] Toy Nye MD Musculoskeletal Problem (Follow up back pain discuss repeating an KATIE ) 11/08/2023 Travel 10/30/2023 Travel from Last 3 Months Immunizations Name Administration Dates Next Due COVID-19 Vaccine Spikevax (M oderna 50mcg/0.5mL) 12YO+ 0782-1820 Formula PF 06/27/2023 COVID-19 vaccine (Moderna 100mcg/0.5mL) PF, MDV 04/19/2022,07/27/2021,12/23/2020,2020 COVID-19 vaccine (Pfizer-Bio NTech 30mcg/0.3mL) 12YO+ BIVALENT PF, MDV 02/19/2023,07/03/2022 Hepatitis A (Adult) 11/15/2009 Hepatitis B (Adult) 01/15/1997,08/01/1996,1995 Influenza Virus, Unspecified 07/06/2015 Influenza, High-dose Inactivated 07/02/2017,10/2015 Influenza, High-dose Quadriv alent Inactivated 07/14/2021 Influenza, IIV3 (Age >=3 years) 07/08/20 14,07/08/2013,07/02/2012,2010,06/28/2010 Influenza, Inactivated AIIV4 (Age 65+ Years) Preserv Free 06/18/2023,08/08/2022,06/10/2020 Influenza, Inactivated IIV3 (Age 65+ Years) Preserv Free 06/26/2019,07/02/2018 Pneumococcal Poly,23-Valent (Pneumovax) 01/24/2018 Pneumococcal conj 13-Valent (Prevnar 13) 06/01/2016 Td (Age >=7 Years) 05/01/2006 Tdap 05/20/2015,05/03/2006 Zoster (Shingrix-RZV, recombinant) 10/25/2018, Zoster (Zostavax-ZVL, live) 06/14/2012 Family History Medical History Relation Name Comments Heart Disease Father difribrilator and pacemaker; age 84 Stroke Father Diabetes Maternal Grandmother Other Mother macular degener ation both eyes/trigeminal neuralgia Cancer-breast No Family History Cancer-ovarian No Family History Relation Name Status Comments Father (Age 84) Maternal Grandmother Mother Social History Tobacco Use Types Packs/Day Years Used Date Smoking Tobacco: Never Smokeless Tobacco: Never Tobacco Cessation:Counseling Given: Yes Alcohol Use Standard Drinks/Week Comments Yes 1.7 (1 standard drink = 0.6 oz p ure alcohol) one glass weekly PHQ-2 Answer Date Recorded PHQ-2 TOTAL SCORE 0 02/19/2023 Social Connections Answer Date Recorded Frequency of Communication with Friends and Fami ly 0 09/07/2023 Financial Resource Strain Answer Date R ecorded Difficulty of Paying Living Expenses 3 09/07/2023 Difficulty of Paying Living Expenses Not on file 09/07/2023 Food Insecurity Answer Date Recorded Worried About Running Out of Food in the Last Ye ar 1 09/07/2023 Transportation Needs Answer Date Record ed Lack of Transportation (Medical) 1 09/07/2023 Housing Stability Answer Date Recorded Unable to Pay for Housing in the Last Year 1 09/07/2023 Sex and Gender Information Value Date Recorded Sex Assigned at Female 07/09/2020 6:47 PM CDT Gender Identity Female 07/09/2020 6:47 PM CDT Sexual Orientation Straight 07/09/2020 6: 47 PM CDT Obstetrics History Para Term AB IAB SAB Ectopic Multiple Livin g Live Births 2 0 0 2 2 0 Date Outcome GA Total Labor Labor/2nd/3rd Weight Sex Delivery Anes PTL Susie A1 A5 Name Cl in SAB SAB Last Filed Vital Signs Vital Sign Reading Time Taken Comments Blood Pressure 104/68 11/08/2023 8:04 AM ORGANIC GARDENING TEACHER Pulse 88 11/08/2023 8:04 AM ORGANIC GARDENING TEACHER Temperature 36.6 ??C (97.8 ??F) 11/08/2023 8:04 AM CS T Respiratory Rate 16 10/04/2021 2:47 PM ORGANIC GARDENING TEACHER Oxygen Saturation 97% 11/08/2023 8:04 AM ORGANIC GARDENING TEACHER Inhaled Oxygen Concentration - - Weight 80.9 kg (178 lb 6.4 oz) 10/08/2023 10:25 AM ORGANIC GARDENING TEACHER Height 162.6 cm (5' 4) 08/01/2023 9:36 AM CDT Body Mass Index 30.62 08/01/2023 9:36 AM CDT Plan of Treatment Upcoming Encounters Date Type Department Care Team (Late st Contact Info) Description 01/08/2024 8:40 AM CDT Office Visit [facility] [address] [place] [address] Toy Nye MD [address] [place] [address] Arrived Health Maintenance Due Date Last Done Comments Medicare Wellness for age 65+ 02/20/2024, 05/25/2021, 01/24/2018 Depression screening for age 12+ 02/21/2024 02/20/2023, 02/19/2023, 02/14/2023, Additional history exists Influenza for age 65+ 06/01/2024 06/18/2023 , 08/08/2022, 07/14/2021, Additional history exists BMI (ht and wt on same day) for age 18+ 08/01/2024 08/01/2023, 02/19/2023, 07/03/2022, Additional history exists Mammogram for age 45-75 11/12/2024 11/12/19 24, 11/06/2022, 10/03/2021, Additional history exists Tetanus booster 05/20/2025 05/20/2015, 11/2005, 05/01/2006 Lipids for age 45-75 06/28/2027 06/28/2022, 07/12/2020, 06/05/2020, Additional history exists Colonoscopy through age 75 04/06/203204/06, 04/06/2022, 04/06/2022, Additional history exists Tdap Completed 05/20/2015, 05/03/2006 Pneumococcal series for age 65+ Completed 8, 06/01/2016 Zoster (shingles) series for age 50+ Completed 10/25/2018, 07/17/2018, 06/14/2012 Hepatitis C screening for ag e 18-79 Completed 07/12/2020 DEXA/DXA scan for age 65+ Completed 2020, 06/06/2016, 06/23/2008 COVID-19 vaccine series Completed 06/27/20 23, 02/19/2023, 07/03/2022, Additional history exists Procedures Procedure Name Priority Date/Time Associated Diagnosis Comments AMB EPIDURAL STEROID INJECTION Routine 01/08/2024 7:57 AM CDT Lumbar radiculopathy Lumbar foraminal stenosis Spondylolisthesis of lumbar region XR MAMMO DANIELA BILAT SCREEN Routine 11/12/2023 9:25 AM ORGANIC GARDENING TEACHER Visit for screening mammogram LIPID PANEL W REFLEX MEASURED LDL Routine 06/28/2022 10:13 AM CDT NSTEMI (non-ST elevated myocardial infarction) (HC) COLONOSCOPY DIAGNOSTIC Routine 04/06/2022 10:11 AM CDT Iron deficiency anemia, unspecified iron deficiency anemia type XR DXA BONE DENSITY 2 SITES AXIAL Routine 05/31/2021 9:27 AM CDT Osteopenia, unspecified location Other specified disorders of bone density and structure, multiple sites ANTI HCV Add On 07/12/2020 10:44 AM CDT Need for hepatitis C screening test from Last 3 Months or Most Recently Relevant to Health Maintenance Results * XR MAMMO DANIELA BILAT SCREEN (11/12/2023 9:25 AM ORGANIC GARDENING TEACHER) Anatomical Region Laterality Modality BREASTS, Breast Left, Breast Right Bilateral Mammography Impressions 11/12/2023 3:06 PM ORGANIC GARDENING TEACHER ??There is no radiographic evidence for malignancy. ??Recommend annual mammograms. MAMMOGRAM ASSESSMENT: ??ACR 1 Negative PATIENTS: You will also receive a letter with your examination results in an easy to read format. ??If you have questions about your results, please contact your referring provider. Narrative 11/12/2023 3:06 PM ORGANIC GARDENING TEACHER For Patients: As a result of the 21st Century Cures Act, medical imaging exams and procedure reports are released immediately into your electronic medical record. You may view this report before your referring provider. If you have questions, please contact your health care provider. XR MAMMO DANIELA BILAT SCREEN [[id number]] CLINICAL HISTORY: ??This is an asymptomatic 73 y.o. patient. INDICATION FOR EXAM: Mammogram Screening. TECHNIQUE: CC & MLO views were obtained. ??This study was evaluated with the assistance of Computer-Aided Detection. Breast Tomosynthesis was used in interpretation. COMPARISON FILM: Yes 11/06/22 [facility] [employer] 10/03/21 [facility] FINDINGS: ??The breasts are heterogeneously dense, which may obscure small masses. There are no dominant masses, suspicious micro calcifications or areas of architectural distortion. Suki Wagoner MD MAMMO * LIPID PANEL W REFLEX MEASURED LDL (06/28/2022 10:13 AM CDT) CHOLESTEROL,TOTAL 121 100 - 199 mg/dL 06/28/2022 7:46 PM CDT [facility] TRIGLYCERIDES 64 <150 mg/dL 06/28/2022 7:46 PM CDT [facility] HDL CHOLESTEROL 72 >40 mg/dL 7:46 PM CDT [facility] NON-HDL CHOLESTEROL 49 <145 mg/dl 06/28/2022 7:46 PM CDT [facility] CHOL/HDL RATIO 1.68 <4.50 06/28/2022 7:46 PM CDT [facility] LDL CHOLESTEROL 36 <=130 mg/dL 06/28/2022 7:46 PM CDT [facility] VLDL CHOLESTEROL 13 <=30 mg/dL 06/28/2022 7:46 PM CDT [facility] PROVIDER ORDERED STATUS RANDOM 06/28/2022 7:46 PM CDT [facility] Blood BLOOD SPECIMEN / Unknown Venipuncture / Unknown 06/28/2022 10:13 AM CDT 06/28/2022 10:15 AM CDT Laila Padilla MD CHEMISTRY [facility] [address] [place] [address], [place] * COLONOSCOPY (04/06/2022 11:11 AM CDT) 04/06/2022 11:1 1 AM CDT Narrative Transcriptions Chino Castaneda MD - 04/06/2022 11:44 AM CDT Patient Name: Sari Braswell Procedure Date: 04/06/2022 Gender: Female Date of : 1950 Admit Type: Ambulatory Procedure: Colonoscopy Proceduralist: Chino Castaneda MD , Rebeca Moore, RN (Nurse), Mandy Lee (Nurse) Indications/Pre-Op Diagnosis: Unexplained iron deficiency anemia, Last colonoscopy: March 2013 Medications: Fentanyl 100 micrograms IV, Midazolam 2 mgIV, The level of sedation administered was moderate, (medications documented represent total dosages for multiple procedures) Procedure Description: The patient had risks, benefits and alternatives explained to andgave informed consent. The patient had a stable cardiopulmonary status and judged an adequate candidate for conscious sedation. The Colonoscope was passed through the anus and advanced to thececum, identified by appendiceal orifice and ileocecal valve. Thecolonoscopy was performed without difficulty. The patient tolerated the procedure well. The quality of the bowel preparation was good. The ileocecal valve, appendiceal orifice, and rectum were photographed. Complications: No immediate complications. Estimated Blood Loss & Specimen: Estimated blood loss: none. Specimen collected - None Findings: The perianal and digital rectal examinations were normal. The entire examined colon appeared normal on direct and retroflexion views. Impressions/Post-Op Diagnosis: - The entire examined colon is normal on direct and retroflexionviews. - No specimens collected. Recommendation: - Patient has a contact number available for emergencies. The signsand symptoms of potential delayed complications were discussed with the patient. Return to normal activities tomorrow. Written discharge instructions were provided to the patient. - Resume previous diet. - Continue present medications. - No repeat colonoscopy due to current age (66 years or older) andthe absence of colonic polyps. Moderate Sedation: Moderate (conscious) sedation was administered by the endoscopy nurse and supervised by the endoscopist. The following parameters were monitored: oxygen saturation, heart rate, respiratory rate, blood pressure, adequacy of pulmonary ventilation and reponse to care. Please refer to the patient's medical record flowsheets and nursing notes for moderate sedation details. Total physician intraservice time was 33 minutes. Chino Castaneda MD 04/06/2022 11:43:46 AM This report has been signed electronically. Note Initiated On: 04/06/2022 11:11 AM Procedure Code(s): --- Professional --- 91745, Colonoscopy, flexible; diagnostic, including collection of specimen(s) bybrushing or washing, when performed (separateprocedure) Diagnosis Code(s): --- Professional --- D50.9, Iron deficiency anemia, unspecified CPT copyright 2020 [employer]. All rights reserved. The codes documented in this report are preliminary and upon cable machine operator reviewmay be revised to meet current compliance requirements. Scope In: 11:13:43 AM Scope Withdrawal Time 0 hours 12 minutes 41 seconds Scope Out: 11:33:13 AM Chino Castaneda MD PROCEDURE ORD * (ABNORMAL) XR DXA BONE DENSITY 2 SITES AXIAL (05/31/2021 9:27 AM CDT) Anatomical Region Laterality Modality Spine, HIPS, HIPL, HIPR Other Impressions 05/31/2021 1:46 PM CDT Osteopenia. RECOMMENDATIONS: The National Osteoporosis Foundation recommends pharmacologic treatment for patients with T-scores of -2.5 or less, patients with prior history of fragility fractures, or patients with 10-year probability of greater than 3% at hips or greater than 20% of suffering major osteoporotic fractures. Recommend continued optimization of calcium and vitamin D intake through dietary means and/or supplementation and regular exercise. Repeat scan recommended in 3-5 years. Hazel Kang PA-C [facility] 05/31/2021 Narrative 05/31/2021 1:46 PM CDT For Patients: Results are automatically released to your [employer] account once available, in compliance with federal regulations. This means that you may see your results before your provider has had a chance to review them. Please allow 2-3 business days for your provider to comment on the results. XR DXA Bone Mineral Density (BMD) EXAM LOCATION: [address] [address] PATIENT NAME: Sari Braswell DATE OF : 1950 EXAM DATE: 05/31/2021 REQUESTING PROVIDER: Laila Padilla MD GENDER AT : female HEIGHT: 5' 4.33 (05/25/2021) WEIGHT: ??179 lb 14.4 oz (05/25/2021) MENOPAUSAL STATUS: Postmenopausal RACE/ETHNICITY: White RISK FACTORS: White Race CURRENT MEDICATION FOR BONE LOSS: NONE INDICATION: Follow-up of existing osteopenia COMPARISON DATE(S): 2015 DXA scans are compared to prior studies for a patient only when the two (or more) studies were performed on the same scanner. It is not possible to compare data generated on one scanner to data from another because there are not standards in DXA equipment. This applies even if the two scanners are made by the same casino floorperson. PROCEDURE: Dual-energy x-ray absorptiometry performed with routine technique. Reporting is completed in the form of a T-score. The T-score represents the standard deviation from peak bone mass based on young healthy adult. A Z-score is used for diagnosis in premenopausal women, and for men under the age of 50. FINDINGS: RESULT LUMBAR SPINE L1 - L4 BMD: 1.063 g/cm2 T-Score: - 1.1 Z-Score: + 0.1 Comparison to most recent scan ??in 2016: ??Decrease 2.6%. ?? RESULT TOTAL FEMUR Right Femoral Neck BMD: 0.849 g/cm2 Bilateral Total Femur BMD: 0.908 g/cm2 RESULT FEMORAL NECK Right Femoral Neck T-Score: - 1.4 Left Femoral Neck T-Score: - 1.2 ?? Right Femoral Neck Z-Score: + 0.0 Left Femoral Neck Z-Score: + 0.1 RESULT TOTAL HIP Total Mean Hip T-Score: - 0.8 Total Mean Hip Z-Score: + 0.3 Comparison to most recent scan ??in 2016: ??Decrease 2.6%. ?? WHO criteria: Normal: T-score at or above -1 SD Osteopenia: T-score between -1.1 and -2.4 SD Osteoporosis: T-score at or below -2.5 SD FRAX RISK CALCULATION (USED FOR OSTEOPENIA ONLY): 10-year probability of major osteoporotic fracture: 9.3%. 10-year probability of hip fracture: 1.2%. Laila Padilla MD DEXA * ANTI HCV (07/12/2020 10:44 AM CDT) HEPATITIS C ANTIBODY Non-React maged Non-React maged 07/12/2020 11:33 PM CDT [facility] Comment:Antibodies to HCV no t detected; does not exclude the possibility of exposure to HCV. Blood BLOOD SPECIMEN / Unknown Venipuncture / Unknown 07/12/2020 10:44 AM CDT 07/12/2020 10:44 AM CDT Laila Padilla MD SEND OUTS [facility] [address] [place] [address], from Last 3 Months or Most Recently Relevant to Health Maintenance Advance Directives * Full Code (Latest Code Status on File) Date Activated Date Inactivated Comments 06/04/2020 5:59 PM 06/06/2020 5:54 PM Question Answer Comments Code Status Discussion: Not Discussed Care Teams Photographer Portrait Relationship Specialty Start Date End Date Suki Wagoner [place] [address] [address] PCP - General Family Practice 10/02/23
--- OUTSIDE RECORDS SUMMARY | 2024-01-08 08:14 | XMS_ITS | Continuity of Care Document ---
Author Name Unknown Organization [facility] Address [address] [place] [address] Phone Care Team Providers Care Certified Drug Counselor Name Role Phone Marlen LANIER, Ensor Unavailable Unavailable Procedures Procedure Date Office consultation, moderate 0 X-ray exam lower spine 2-3 views 2009 Advance Directives Directive Yes / No Effective Date File Name No Information Encounters Encounter Description Practice Location Reason(s) For Visit Diagnoses Date Provider Providers Copied on Encounter Office consultation, moderate Z [facility], [address] [place], [place] [address], [address], tel:[phone] [facility] No Information 201 0 [employer] Ensor. [facility], [address] [place] [address], [address], [id number], . tel:[phone] Family History Family Member Type Diagnosis Age At Onset No Information Payers Payer name Insurance type Covered alliance party ID Authoriza tion(s) [facility] [id number] Social History Type Description Quantity Date Captured [...]
== END 2024-01-08 08:11 | disposition home or self-care (01) ==
LOC: INJ CL 08:12
PROVIDERS: PCP Student in an Organized Health Care Education/Training Program; Visit Provider Family Medicine
DX: M54.16 Radiculopathy, lumbar region (principal); M51.36 Other intervertebral disc degeneration, lumbar region
CPT/HCPCS: 64483; J1100; Q9966